=== PATIENT | female | born 1970 | race Caucasian/White ===

== ENCOUNTER 2018-04-30 08:11 | Emergency (ER) | END 2018-04-30 10:36 | disposition home or self-care (01) ==

== ENCOUNTER → 2019-04-09 | Emergency (ER) | payer MEDICAID ==
[~2019-04-09] VITALS: Ht 152.4 cm; Wt 67.9 kg
[~2019-04-09] MED LIST: HYDR-4011 PO; MICO45CR68 VAG; NAPR-985 PO; NITR-58 PO; ONDA4TAB8 PO
[2019-04-09 07:15] VITALS: Ht 152.4 cm; Wt 67.9 kg
[2019-04-09 09:38] VITALS: BP 122/65; PULSE 76; RESP 20
--- NOTE | 2019-04-09 09:43 | ERD ---
ER Documentation Chief Complaint Chief Complaint pelvic pain, on and off x1 month, no vb HPI This a 49-year-old Comoran-speaking female presents to the ED complaining of vaginal "burning" pain x1 month. Pain has been getting progressively worse so she came here for further evaluation. She reports associated vaginal clear discharge and itching. No fevers. No back pain. She is not sexually active currently and denies any known STD exposures. Patient states she had similar symptoms 6 months ago due to a "vaginal infection" which she was treated for with both topical and oral medications for 7 days. ROS All systems reviewed and are negative except as per history of present illness. Medications Home Meds Active Scripts Miconazole Nitrate* (Monistat 7*) 45 Gm Cream.appl, 1 APPFUL VAG HS for 7 Days, #1 TUB Prov:FAMILIAIGRSEAN CALLEJASC 04/09/19 Naproxen* (Naprosyn*) 500 Mg Tablet, 500 MG PO BID PRN for PAIN AND/OR INFLAMMATION, #30 TAB Prov:SHANAE DAVISC 04/30/18 Nitrofurantoin Monohyd Macrocr* (Macrobid*) 100 Mg Capsr, 100 MG PO BID for 7 Days, CAP Prov:SHANAE DAVIS PA-C 04/30/18 Ondansetron Hcl* (Zofran*) 4 Mg Tablet, 4 MG PO Q6H for NAUSEA AND/OR VOMITING, #30 TAB Prov:SHANAE DAVISC 04/30/18 Hydrocodone/Acetaminophen ([place] 5-325 Tablet) 1 Each Tablet, 1 TAB PO Q6H PRN for PAIN, #12 TAB Prov:SHANAE DAVISC 04/30/18 Allergies Allergies: Coded Allergies: No Known Allergy (Unverified , 04/09/19) PMhx/Soc Medical and Surgical Hx: pt denies Medical Hx, pt denies Surgical Hx Hx Alcohol Use: No Hx Substance Use: No Hx Tobacco Use: No Smoking Status: Never smoker FmHx Family History: No diabetes Physical Exam Vitals Vital Signs Date Temp Pulse Resp B/P (MAP) Pulse Ox O2 O2 Flow FiO2 Time Delivery Rate 04/09/19 97.6 58 17 126/59 99 07:15 (81) Physical Exam Const: No acute distress Head: Atraumatic Eyes: Normal Conjunctiva ENT: Normal External Ears, Nose and Mouth. Abd: Soft, non tender, non distended. Normal bowel sounds Pelvic Exam: Abdomen: Nontender External Genitalia: + Mild erythema around the labia majora Speculum: Normal vaginal mucosa, normal cervical discharge Back: No midline or flank tenderness Ext: No cyanosis, or edema Neur: Awake and alert Psych: Normal Mood and Affect Results 24 hrs Laboratory Tests Test 04/09/19 07:59 04/09/19 08:05 Urine Color COLORLESS Urine Clarity CLEAR Urine pH 6.0 Urine Specific [place] 1.002 Urine Ketones NEGATIVE mg/dL Urine Nitrite NEGATIVE mg/dL Urine Bilirubin NEGATIVE mg/dL Urine Urobilinogen NEGATIVE mg/dL Urine Leukocyte Esterase NEGATIVE Ailin/ul Urine Microscopic RBC 0 /HPF Urine Microscopic WBC 0 /HPF Urine Bacteria FEW /HPF Urine Hemoglobin 1+ mg/dL Urine Glucose NEGATIVE mg/dL Urine Total Protein NEGATIVE mg/dl POC Beta HCG, Qualitative NEGATIVE Procedures/MDM LABS & DIAGNOSTIC IMAGING: Urine: no e/o acute infection or hematuria Ucx: pending beta hcg: neg Wet mount: neg MEDICAL DECISION MAKING: This a 49-year-old [place]oran-speaking nonsexually active female presents w/ vaginal itching, dysuria and discharge. Her UA is negative for infection. She has no evidence of pyelonephritis or signs or symptoms concerning for PID. Wet mount was unremarkable although patient does have evidence of mild vulvovaginal candidiasis on physical exam, therefore will attempt to treat w/ topical antifungals. She was given referral to [facility] to follow-up with. Strict return precautions were discussed. PRESCRIPTIONS: Monistat SPECIALIST FOLLOW UP RECOMMENDED: None DISCLAIMER: Translating system was used to communicate w/ patient during their course of stay in the ED. All questions were answered prior to discharge. Departure Diagnosis: Primary Impression: Vaginal itching Condition: Stable Patient Instructions: Preventing Vaginal Infection Referrals: [facility] [place] [id number] [facility] [address] [place] [id number] OFFICE FAX KORIN SIDDIQI [address] [place] [address] [facility] [id number] [place] [address], [place] [address] [address] COHEN, HESHMAT [id number] [facility] [facility], [address], [place] [address] DR [facility] [address] [address] [facility], [place] [address] [facility] [address] [place] [address] [facility] [address] - [address] CARL, [place] [address], [facility] [address] [address] HERNANDEZ, [place] [address] [facility]. [address], [place] [address] DR DINH, F[place] [address] [place], [place] [id number] Additional Instructions: Paciente aconseja volver a Departamento de urgencias inmediatamente para sntomas nuevos o que empeoran . Paciente aconseja posteriores con el PCP en 1-2 spears. Si el paciente no tiene ninguna de atencin primaria pueden seguir con [facility] [address] [address] [place] [place] [address] o [facility] + [address] [address] SEAN MACKEY PA-C Apr 09, 2019 09:42
== END | disposition home or self-care (01) ==
LOC: FTE 07:11
DX: N89.8 Other specified noninflammatory disorders of vagina (principal)
CPT/HCPCS: 81001; 81025; 87086; 87210; 99284